=== PATIENT | male | born 1980 | race Caucasian/White ===

== ENCOUNTER 2020-01-26 21:37 | Observation (INO) | payer OTHER ==
[2020-01-27] MEDS ORDERED: METHYLPREDNISOLONE 125 MG INJ ONE
[2020-01-27] MEDS ORDERED: NA CHLORIDE 0.9% 1,000 ML ONE (00:01)
[2020-01-27] MEDS ORDERED: IPRATROPIUM BROM 0.5MG/2.5ML ONE (00:01)
[2020-01-27] MEDS ORDERED: CEFTRIAXONE/SWI 1gm 1 GM/10 ML SYR ONE (00:01)
[2020-01-27] MEDS ORDERED: AZITHROMYCIN 250 MG TAB ONE (00:01)
[2020-01-27 00:36] LABS: Absolute Lymphocytes (CBC) 2.3 K/uL (0.7-4.9); Basophils % 0.2 % (0-1.3); Hematocrit 42.8 % (39.6-49.0); Lymphocytes % 33.2 % (15.3-44.8); MPV 10.3 fL (7.6-11.3); RBC Red Blood Cell Count 5.03 M/uL (4.33-5.43)
[2020-01-27 00:48] LABS: Albumin 3.6 g/dL (3.4-5.0); Bilirubin Total 0.6 mg/dL (0.2-1.0); Potassium 3.6 mmol/L (3.5-5.1); Protein, Total 8.4 g/dL (6.4-8.2)
[2020-01-27 01:50] LABS: Blood Morphology Comment NOT SEEN (NOT SEEN); Platelet Estimate ADEQ
--- NOTE | 2020-01-27 01:50 | ER ---
Nurse's Notes [facility] Name: Tanvir Degroot Age: 39 yrs Sex: Male : 1980 Arrival Date: 01/26/2020 Time: 21:38 Bed 13 Private MD: Diagnosis: Pneumonia due to other specified infectious organisms;Hypoxemia Presentation: 01/25 21:46 Chief complaint: Patient states: Was diagnosed with Acute Bronchitis on Sunday, tested ca1 negative for Covid. Took antibiotics, inhalers, not relief, just getting worse. SOB at rest and laying down. Reports productive cough, chills. Denies fever. Coronavirus screen: Client denies travel out of the [place] in the last 14 days. chills, congestion, fatigue, shortness of breath, Client presents with at least one sign or symptom that may indicate coronavirus-19. Standard/surgical mask placed on the client. Provider contacted for isolation considerations. The client reports previous COVID testing was negative. Date of collection: January 22, 2020. Ebola Screen: Patient negative for fever greater than or equal to 101.5 degrees Fahrenheit, and additional compatible Ebola Virus Disease symptoms Patient denies exposure to infectious person. Patient denies travel to an Ebola-affected area in the 21 days before illness onset. No symptoms or risks identified at this time. Initial Sepsis Screen: Does the patient meet any 2 criteria? No. Patient's initial sepsis screen is negative. Does the patient have a suspected source of infection? No. Patient's initial sepsis screen is negative. Risk Assessment: Do you want to hurt yourself or someone else? Patient reports no desire to harm self or others. Onset of symptoms was January 26, 2020. 21:46 Method Of Arrival: Ambulatory ca1 21:46 Acuity: NAHED 3 ca1 Triage Assessment: 23:34 General: Appears in no apparent distress. Respiratory: Onset: The symptoms/episode ll2 began/occurred last two weeks, Respiratory: Airway is patent Respiratory effort is even, with nasal flaring, shallow. Historical: - Allergies: 21:50 No Known Allergies; ca1 - Home Meds: 21:50 None [Active]; ca1 - PSHx: 21:50 None; ca1 - Immunization history:: Adult Immunizations up to date, Flu vaccine is not up to date. - Social history:: Smoking status: Patient denies any tobacco usage or history of. Screenin:34 Abuse screen: Denies threats or abuse. Nutritional screening: No deficits noted. ll2 Tuberculosis screening: No symptoms or risk factors identified. Fall Risk None identified. Assessment: 23:32 General: Appears in no apparent distress. Behavior is calm, cooperative, appropriate ll2 for age. Pain: Denies pain. Neuro: Level of Consciousness is awake, alert, obeys commands, Oriented to person, place, time, situation. Cardiovascular: Rhythm is. Respiratory: Airway is patent Respiratory effort is even, with nasal flaring, shallow. GI: Reports diarrhea, nausea, since last week. : No signs and/or symptoms were reported regarding the genitourinary system. EENT: No signs and/or symptoms were reported regarding the EENT system. Derm: Skin is intact, is healthy with good turgor, Skin is dry, Skin is pink, warm \T\ dry. Skin temperature is warm. Musculoskeletal: Circulation, motion, and sensation intact. Range of motion: intact in all extremities. 23:35 Reassessment: pt's O2 sats were decreased to 90%, ERD notified, pt placed on 2L NC. ll2 01/26 00:25 Reassessment: Patient and/or family updated on plan of care and expected duration. Pain ll2 level reassessed. Patient is alert, oriented x 3, equal unlabored respirations, skin warm/dry/pink. pt resting in bed, at bedside. 01:22 Reassessment: Patient and/or family updated on plan of care and expected duration. Pain ll2 level reassessed. Patient is alert, oriented x 3, equal unlabored respirations, skin warm/dry/pink. 02:20 Reassessment: Patient and/or family updated on plan of care and expected duration. Pain ll2 level reassessed. Patient is alert, oriented x 3, equal unlabored respirations, skin warm/dry/pink. ERP advised pt on need for admit. 03:30 Reassessment: Patient and/or family updated on plan of care and expected duration. Pain ll2 level reassessed. Patient is alert, oriented x 3, equal unlabored respirations, skin warm/dry/pink. pt resting in bed comfortably, call light within reach. 04:42 Reassessment: Patient and/or family updated on plan of care and expected duration. Pain ll2 level reassessed. Patient is alert, oriented x 3, equal unlabored respirations, skin warm/dry/pink. report given to LAUREN michelle. 05:28 Reassessment: Patient and/or family updated on plan of care and expected duration. Pain ll2 level reassessed. Patient is alert, oriented x 3, equal unlabored respirations, skin warm/dry/pink. pt taken upstairs handed off care to LAUREN michelle. 05:34 Respiratory: Breath sounds are coarse bilaterally. ll2 Vital Signs: 01/25 21:46 BP 125 / 84; Pulse 105; Resp 18 S; Temp 98.7(TE); Pulse Ox 93% on R/A; Weight 104.33 kg ca1 (R); Height 5 ft. 8 in. (172.72 cm) (R); 23:25 BP 120 / 80; Pulse 85; Resp 18; Temp 98.7; Pulse Ox 90% on R/A; ll2 23:36 BP 110 / 84; Pulse 90; Resp 18; Pulse Ox 95% on 2 lpm NC; ll2 01/26 00:35 BP 106 / 77; Pulse 83; Resp 18; Pulse Ox 95% on 2 lpm NC; ll2 01:32 BP 117 / 71; Pulse 90; Resp 18; Pulse Ox 96% on 15% Nebulizer Mask; ll2 02:30 BP 116 / 75; Pulse 82; Resp 18; Temp 98.7; Pulse Ox 95% on 2 lpm NC; ll2 03:30 BP 107 / 73; Pulse 73; Resp 18; Pulse Ox 94% on 2 lpm NC; ll2 04:45 BP 117 / 81; Pulse 73; Resp 18; Temp 98.6; Pulse Ox 94% on 2 lpm NC; ll2 01/25 21:46 Body Mass Index 34.97 (104.33 kg, 172.72 cm) ca1 ED Course: 01/25 21:38 Patient arrived in ED. am2 21:49 Triage completed. ca1 21:50 Arm band placed on right wrist. ca1 23:10 Varsha Polo MD is Attending Physician. ma2 23:15 Maryann Jaffe, LAUREN is Primary Nurse. ll2 23:34 Patient has correct armband on for positive identification. Bed in low position. Call ll2 light in reach. Side rails up X 1. Pulse ox on. NIBP on. 23:43 CXR XRAY In Process Unspecified. EDIL 01/26 00:15 [facility]rep [facility]. [facility] 00:15 Flu Sent. 4 00:15 Inserted saline lock: 20 gauge in left hand, using aseptic technique. Blood collected. [facility] 01:49 Marco Antonio Borrego DO is Hospitalizing Provider. [facility] 05:34 No provider procedures requiring assistance completed. Patient admitted, IV remains in ll2 place. Administered Medications: 00:31 Drug: AZITHromycin 500 mg Route: PO; ll2 01:20 Follow up: Response: No adverse reaction ll2 00:31 Drug: NS 0.9% 1000 ml Route: IV; Rate: 1 bolus; Site: left antecubital; ll2 01:30 Follow up: Response: No adverse reaction; IV Status: Completed infusion; IV Intake: ll2 1000ml 00:32 Drug: Rocephin 1 grams Route: IV; Rate: calculated rate; Site: left antecubital; 2 00:33 Follow up: Response: No adverse reaction; IV Intake: 10ml ll2 01:20 Follow up: Response: No adverse reaction ll2 00:32 Drug: AtroVENT Aerosol 0.5 mg Route: Inhalation; ll2 01:30 Follow up: Response: No adverse reaction ll2 00:32 Drug: SOLU-Medrol 125 mg Route: IVP; Site: left antecubital; ll2 01:21 Follow up: Response: No adverse reaction ll2 Intake: 00:33 IV: 10ml; Total: 10ml. ll2 01:30 IV: 1000ml; Total: 1010ml. 2 Outcome: 01:50 Decision to Hospitalize by Provider. ma2 05:31 Admitted to Med/surg accompanied by nurse, via wheelchair, with oxygen, Report called ll2 to LAUREN Michelle 05:31 Condition: stable 05:31 Instructed on the need for admit. 05:35 Patient left the ED. 2 Signatures: Dispatcher [employer] EDIL Olivia Mills Varsha Taveras MD MD fl2 Jyothi Duran RN RN ca1 Huhn, Donald 4 Maryann Jaffe RN RN 2 Corrections: (The following items were deleted from the chart) 02:14 00:15 CORONAVIRUS+MR.NICHOLAS.BRZ drawn and sent. dh4 EDIL
--- NOTE | 2020-01-27 01:50 | EDPHYS ---
Physician Documentation [facility] Name: Tanvir Degroot Age: 39 yrs Sex: Male : 1980 Arrival Date: 01/26/2020 Time: 21:38 Bed 13 Private MD: ED Physician Varsha Polo HPI: 01/26 01:47 This 39 yrs old Male presents to ER via Ambulatory with complaints of ma2 Shortness Of Breath, Cough, General Weakness. 01:47 Onset: The symptoms/episode began/occurred gradually, 9 day(s) ago. Associated signs ma2 and symptoms: Pertinent positives: productive cough, Pertinent negatives: chest pain, diaphoresis, fever, nausea, numbness in extremities. Severity of symptoms: At their worst the symptoms were moderate in the emergency department the symptoms are unchanged. The patient has experienced a previous episode. has been having cough and sob x 3 weeks, had a negative covid test 3 wks ago, he completed z-pack and his symptoms worsens, his spo2 is 90 on ra . Historical: - Allergies: 01/25 21:50 No Known Allergies; ca1 - Home Meds: 21:50 None [Active]; ca1 - PSHx: 21:50 None; ca1 - Immunization history:: Adult Immunizations up to date, Flu vaccine is not up to date. - Social history:: Smoking status: Patient denies any tobacco usage or history of. ROS: 01/26 01:47 Constitutional: Negative for fever, chills, and weight loss. ma2 All other systems are negative. Exam: 01:47 Constitutional: This is a well developed, well nourished patient who is awake, alert, ma2 and in no acute distress. Head/Face: Normocephalic, atraumatic. Eyes: Pupils equal round and reactive to light, extra-ocular motions intact. Lids and lashes normal. Conjunctiva and sclera are non-icteric and not injected. Cornea within normal limits. Periorbital areas with no swelling, redness, or edema. ENT: Nares patent. No nasal discharge, no septal abnormalities noted. Tympanic membranes are normal and external auditory canals are clear. Oropharynx with no redness, swelling, or masses, exudates, or evidence of obstruction, uvula midline. Mucous membranes moist. Neck: Trachea midline, no thyromegaly or masses palpated, and no cervical lymphadenopathy. Supple, full range of motion without nuchal rigidity, or vertebral point tenderness. No Meningismus. Chest/axilla: Normal chest wall appearance and motion. Nontender with no deformity. No lesions are appreciated. Cardiovascular: Regular rate and rhythm with a normal S1 and S2. No gallops, murmurs, or rubs. Normal PMI, no JVD. No pulse deficits. Abdomen/GI: Soft, non-tender, with normal bowel sounds. No distension or tympany. No guarding or rebound. No evidence of tenderness throughout. Back: No spinal tenderness. No costovertebral tenderness. Full range of motion. MS/ Extremity: Pulses equal, no cyanosis. Neurovascular intact. Full, normal range of motion. Neuro: Awake and alert, GCS 15, oriented to person, place, time, and situation. Cranial nerves II-XII grossly intact. Motor strength 5/5 in all extremities. Sensory grossly intact. Cerebellar exam normal. Normal gait. Psych: Awake, alert, with orientation to person, place and time. Behavior, mood, and affect are within normal limits. 01:47 Respiratory: moderate respiratory distress is noted, Respirations: labored breathing, Breath sounds: bronchial sounds, that are moderate, Respiratory rate: 22 Vital Signs: 01/25 21:46 BP 125 / 84; Pulse 105; Resp 18 S; Temp 98.7(TE); Pulse Ox 93% on R/A; Weight 104.33 kg ca1 (R); Height 5 ft. 8 in. (172.72 cm) (R); 23:25 BP 120 / 80; Pulse 85; Resp 18; Temp 98.7; Pulse Ox 90% on R/A; ll2 23:36 BP 110 / 84; Pulse 90; Resp 18; Pulse Ox 95% on 2 lpm NC; ll2 01/26 00:35 BP 106 / 77; Pulse 83; Resp 18; Pulse Ox 95% on 2 lpm NC; ll2 01:32 BP 117 / 71; Pulse 90; Resp 18; Pulse Ox 96% on 15% Nebulizer Mask; ll2 02:30 BP 116 / 75; Pulse 82; Resp 18; Temp 98.7; Pulse Ox 95% on 2 lpm NC; ll2 03:30 BP 107 / 73; Pulse 73; Resp 18; Pulse Ox 94% on 2 lpm NC; ll2 04:45 BP 117 / 81; Pulse 73; Resp 18; Temp 98.6; Pulse Ox 94% on 2 lpm NC; ll2 01/25 21:46 Body Mass Index 34.97 (104.33 kg, 172.72 cm) ca1 MDM: 01/25 23:10 Patient medically screened. [facility] 01/26 01:47 Differential diagnosis: Anemia Anxiety Reaction asthma, Bronchitis Chronic Obstructive la2 Pulmonary Disease pneumonia, reactive airway disease. Antibiotic administration: Data reviewed: vital signs, nurses notes. Counseling: I had a detailed discussion with the patient and/or guardian regarding: the historical points, exam findings, and any diagnostic results supporting the discharge/admit diagnosis, the presence of at least one elevated blood pressure reading (>120/80) during this emergency department visit, the need for further work-up and treatment in the hospital. 01/25 23:30 Order name: Flu; Complete Time: 01:13 [facility] 01/25 23:30 Order name: Strep; Complete Time: 01:13 [facility] 01/25 23:30 Order name: CBC with Diff [facility] 01/25 23:30 Order name: CMP [facility] 01/26 01:51 Order name: Manual Differential; Complete Time: 02:32 [facility] 01/26 01:55 Order name: Blood Culture Adult (2) [facility] 01/26 01:55 Order name: Procalcitonin [facility] 01/26 02:11 Order name: Throat Culture [facility] 01/26 02:18 Order name: C-Reactive Protein [facility] 01/26 02:18 Order name: Ferritin [facility] 01/26 02:38 Order name: SARS-COV-2 RT PCR [facility] 01/25 23:30 Order name: CXR XRAY [facility] 01/25 23:30 Order name: Document PUI#; Complete Time: 00:16 [facility] 01/25 23:30 Order name: Droplet/Contact Precautions; Complete Time: 00:16 [facility] 01/25 23:30 Order name: Labs collected and sent; Complete Time: 00:15 [facility] 01/25 23:30 Order name: Notify Health Dept [phone]/ ; Complete Time: 00:16 [facility] 01/25 23:30 Order name: O2 Per Protocol; Complete Time: 00:15 ma2 Administered Medications: 00:31 Drug: AZITHromycin 500 mg Route: PO; ll2 01:20 Follow up: Response: No adverse reaction ll2 00:31 Drug: NS 0.9% 1000 ml Route: IV; Rate: 1 bolus; Site: left antecubital; ll2 01:30 Follow up: Response: No adverse reaction; IV Status: Completed infusion; IV Intake: ll2 1000ml 00:32 Drug: Rocephin 1 grams Route: IV; Rate: calculated rate; Site: left antecubital; ll2 00:33 Follow up: Response: No adverse reaction; IV Intake: 10ml ll2 01:20 Follow up: Response: No adverse reaction ll2 00:32 Drug: AtroVENT Aerosol 0.5 mg Route: Inhalation; ll2 01:30 Follow up: Response: No adverse reaction ll2 00:32 Drug: SOLU-Medrol 125 mg Route: IVP; Site: left antecubital; ll2 01:21 Follow up: Response: No adverse reaction ll2 Disposition: 01/27/20 01:50 Hospitalization ordered by Marco Antonio Borrego for Inpatient Admission. Preliminary diagnosis are Pneumonia due to other specified infectious organisms, Hypoxemia. - Bed requested for Telemetry/MedSurg (Inpatient). - Status is Inpatient Admission. ll2 - Condition is Stable. - Problem is new. - Symptoms are unchanged. Signatures: Dispatcher [employer] EDWI Vicki Roy RN RN mw Attema, Lee, NURSE ORTHOPEDIC-C NURSE ORTHOPEDIC-Cla1 Varsha Polo MD MD la2 Jyothi Duran RN RN [facility] Maryann Jaffe RN RN ll2 Corrections: (The following items were deleted from the chart) 02:14 01/25 23:31 CORONAVIRUS+MR.LAB.BRZ ordered. EDWI EDMS 01/26 02:17 02:07 C-REACTIVE PROTEIN+C.LAB.BRZ ordered. EDWI EDMS 02:18 02:07 FERRITIN+C.LAB.BRZ ordered. EDWI EDMS 04:00 01:50 Hospitalization Ordered by Marco Antonio Borrego DO for Inpatient Admission. Preliminary diagnosis is Pneumonia due to other specified infectious organisms; Hypoxemia. Bed requested for Telemetry/MedSurg (Inpatient). Status is Inpatient Admission. Condition is Stable. Problem is new. Symptoms are unchanged. ma2 05:35 04:00 01/27/2020 01:50 Hospitalization Ordered by Marco Antonio Borrego DO for Inpatient ll2 Admission. Preliminary diagnosis is Pneumonia due to other specified infectious organisms; Hypoxemia. Bed requested for Telemetry/MedSurg (Inpatient). Status is Inpatient Admission. Condition is Stable. Problem is new. Symptoms are unchanged. mw
[2020-01-27 02:38] LABS: C-Reactive Protein 10.1 mg/L (<3.00); Ferritin 322.8 ng/mL (26-388)
--- NOTE | 2020-01-27 02:49 | P.HP ---
Certification for Inpatient Patient admitted to: Observation With expected LOS: <2 Midnights Patient will require the following post-hospital care: None Practitioner: I am a practitioner with admitting privileges, knowledge of patient current condition, hospital course, and medical plan of care. Services: Services provided to patient in accordance with Admission requirements found in Title 42 Section 412.3 of the Code of Federal Regulations <Jesus Mccabe - Last Filed: 01/27/20 02:46> Patient admitted to: Observation <Marco Antonio Borrego - Last Filed: 01/27/20 13:55> Patient History Date of Service: 01/27/20 Primary Care Provider: [place] Reason for admission: Dyspnea, COVID History of Present Illness: Otherwise healthy 39-year-old male presents the emergency department for shortness of breath. Patient reports productive cough over the course of the last 3 weeks with shortness of breath increasing over the course of the last 1 week. Patient was seen at urgent care on 01/22/2020 and prescribed Z-Tristen, Medrol Dosepak, Tessalon Perle, albuterol inhaler but symptoms have worsened since then. Patient also reports other symptoms suggesting viral illness such as muscle aches, nausea, diarrhea, vomiting. 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 Patient was mildly hypoxic and tachypneic in the emergency department with saturations around 90% and respiratory rate in the high 20s. Patient tested positive for COVID. Will admit for further evaluation and management. CRP level pending. Patient is a [facility] patient, the [facility] notification hot line was called and made aware of his emergency department visit and pending hospitalization. 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 - Family History Family History: Reviewed- Non-Contributory - Social History Smoking Status: Never smoker Alcohol use: Yes CD- Drugs: No Caffeine use: Yes Place of Residence: Home <Jesus Mccabe - Last Filed: 01/27/20 02:46> Date of Service: 01/27/20 <Marco Antonio Borrego - Last Filed: 01/27/20 13:55> Review of Systems General: Weakness, Malaise Respiratory: Cough, Shortness of Breath, Pleuritic Pain Gastrointestinal: Nausea, Vomiting, Abdominal Pain <Jesus Mccabe - Last Filed: 01/27/20 02:46> Eyes: Unremarkable ENT: Unremarkable Genitourinary: Unremarkable Musculoskeletal: Unremarkable Integumentary: Unremarkable Neurological: Unremarkable Lymphatics: Unremarkable <Marco Antonio Borrego - Last Filed: 01/27/20 13:55> Physical Examination - Physical Exam General: Alert, In no apparent distress, Oriented x3 HEENT: Atraumatic, Normocephalic, PERRLA Neck: Supple Respiratory: Diminished (Bilaterally) Cardiovascular: Normal pulses, Regular rate/rhythm, Normal S1 S2 Capillary refill: <2 Seconds Gastrointestinal: Normal bowel sounds, Soft and benign, No tenderness, No masses, No rebound Musculoskeletal: No contractures, No erythema, No tenderness Integumentary: No significant lesion, No tenderness/swelling, No erythema Neurological: Normal speech, Normal strength at 5/5 x4 extr, Normal tone, Sensation intact - Studies Laboratory Data (last 24 hrs) 01/27/20 00:05: Sodium 136, Potassium 3.6, BUN 11, Creatinine 1.14, Glucose 102, Total Bilirubin 0.6, AST 59 H, ALT 64, Alkaline Phosphatase 87 01/27/20 00:05: WBC 7.0, Hgb 14.5, Hct 42.8, Plt Count 268 Microbiology Data (last 24 hrs): 01/27/20 00:10 Throat Group A Streptococcus Rapid Screen - Final 01/27/20 00:10 Nasopharnyx Influenza Type A Antigen Screen - Final 01/27/20 00:10 Nasopharnyx Influenza Type B Antigen Screen - Final <Jesus Mccabe - Last Filed: 01/27/20 02:46> - Studies Laboratory Data (last 24 hrs) 01/27/20 00:05: Sodium 136, Potassium 3.6, BUN 11, Creatinine 1.14, Glucose 102, Total Bilirubin 0.6, AST 59 H, ALT 64, Alkaline Phosphatase 87 01/27/20 00:05: WBC 7.0, Hgb 14.5, Hct 42.8, Plt Count 268 Microbiology Data (last 24 hrs): 01/27/20 00:10 Throat Group A Streptococcus Rapid Screen - Final 01/27/20 00:10 Nasopharnyx Influenza Type A Antigen Screen - Final 01/27/20 00:10 Nasopharnyx Influenza Type B Antigen Screen - Final <Marco Antonio Borrego - Last Filed: 01/27/20 13:55> Assessment and Plan - Plan Assessment Dyspnea and hypoxia secondary to COVID pneumonia Plan Dyspnea and hypoxia secondary to COVID pneumonia: Continue with IV steroids, supplementation. Pulmonology consult in place. Oxygen supplementation as necessary. Daily room air saturations, room air saturations for home oxygen. Possible discharge with home oxygen if patient is feeling well tomorrow. DVT prophylaxis Lovenox 40 mg subcutaneous once daily. Discharge Plan: Home Plan to discharge in: 24 Hours - Advance Directives Does patient have a Living Will: No Does patient have a Durable POA for Healthcare: No - Code Status/Comfort Care Code Status Assessed: Yes (Full code) Critical Care: No Time Spent Managing Pts Care (In Minutes): 55 <Jesus Mccabe - Last Filed: 01/27/20 02:46> - Plan Case discussed with nurse practitioner. Agree with plan of care. Please see discharge summary for details. <Marco Antonio Borrego - Last Filed: 01/27/20 13:55>
[2020-01-27] MEDS ORDERED: ONDANSETRON 4 MG/2 ML VIAL IV PRN (04:48)
[2020-01-27] MEDS ORDERED: ACETAMINOPHEN 500 MG TAB PO PRN (04:48)
[2020-01-27] MEDS ORDERED: BENZONATATE 100 MG CAP PO PRN (04:48)
[2020-01-27 05:35] VITALS: BMI 33.2
[2020-01-27 06:25] VITALS: O2SAT 96
[2020-01-27] MEDS: ASCORBIC ACID 500 MG TABLET PO SCH ×2 (07:55→13:29)
[2020-01-27] MEDS ORDERED: INFLUENZA VACCINE (for 3y+) 0.5 ML DOSE IMVAC ONE (08:00)
--- NOTE | 2020-01-27 08:02 | RAD REPORT ---
EXAM DESCRIPTION: [facility] Single View01/26/2020 11:43 pm CLINICAL HISTORY: Congestion COMPARISON: none FINDINGS: The lungs appear clear of acute infiltrate. The heart is normal size IMPRESSION: No acute abnormalities displayed
[2020-01-27 08:51] VITALS: TEMP 97.2
[2020-01-27] MEDS ORDERED: CEFTRIAXONE/SWI 1gm 1 GM/10 ML SYR IV SCH ×2 (09:00→10:00)
[2020-01-27] MEDS ORDERED: ENOXAPARIN 40 MG/0.4 ML SQ SCH (09:00)
[2020-01-27] MEDS ORDERED: METHYLPREDNISOLONE 40 MG INJ IV SCH (09:00)
[2020-01-27] MEDS ORDERED: VITAMIN D 1000 UNIT TAB PO SCH (09:00)
[2020-01-27] MEDS ORDERED: AZITHROMYCIN IV 500 MG in NA CHLORIDE 0.9% 250 ML IVPB SCH (09:00)
[2020-01-27] MEDS ORDERED: ZINC SULFATE 220 MG CAP PO SCH (09:00)
[2020-01-27] MEDS ORDERED: CEFTRIAXONE 1 GM/NS 50 ML 1 GM/50 ML BAG IV SCH (09:00)
--- NOTE | 2020-01-27 12:57 | P.CNS ---
Date of Consult: 01/27/20 Primary Care Provider: CHETNA Chief Complaint: Dyspnea, COVID History of Present Illness: Patient is 39 years of age presented to the emergency room with shortness of breath been short of breath over the past 3 weeks could became progressively worse in to urgent care and was treated with steroids in inhalers also developed systemic symptoms diarrhea nausea vomiting patient tested positive for zamora virus he is doing well right not chest x-ray nose significant interstitial changes Allergies No Known Allergies Allergy (Unverified 01/27/20 04:48) Home Medications: NK [No Home Meds] 01/27/20 - Past Medical/Surgical History Diabetic: No -: None -: None Psychosocial/ Personal History: 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 - Social History Alcohol use: No CD- Drugs: No Caffeine use: Yes Place of Residence: Home Review of Systems General: Weakness, Malaise Respiratory: Shortness of Breath Physical Examination Temp Pulse Resp BP Pulse Ox 97.2 F 75 18 115/68 93 01/27/20 12:00 01/27/20 12:00 01/27/20 12:00 01/27/20 12:00 01/27/20 12:00 General: Alert, In no apparent distress, Oriented x3 Respiratory: Clear to auscultation bilaterally Cardiovascular: Regular rate/rhythm Laboratory Data (last 24 hrs) 01/27/20 00:05: Sodium 136, Potassium 3.6, BUN 11, Creatinine 1.14, Glucose 102, Total Bilirubin 0.6, AST 59 H, ALT 64, Alkaline Phosphatase 87 01/27/20 00:05: WBC 7.0, Hgb 14.5, Hct 42.8, Plt Count 268 - Problems (1) Coronavirus infection Current Visit: Yes Status: Acute Plan: Patient is 39 years of age admitted with zamora virus infection is doing well is CRP is minimally elevated oxygen saturation is satisfactory patient can be discharged home on low-dose prednisone 10 mg twice a day for about 10 days no anticoagulation necessary can take over the counter aspirin
--- NOTE | 2020-01-27 13:43 | P.DS ---
Admission Date: 01/27/20 Discharge Date: 01/27/20 Primary Care Provider: CHETNA Disposition: ROUTINE DISCHARGE Discharge Condition: GOOD Reason for Admission: Dyspnea, COVID Consultations: Pulmonary-Dr. Becerra Procedures: CXR: COMPARISON: none FINDINGS: The lungs appear clear of acute infiltrate. The heart is normal size IMPRESSION: No acute abnormalities displayed Medical problem List: Dyspnea secondary to bilateral COVID19 pneumonia with hypoxia Brief History of Present Illness: 39-year-old male presents the emergency department for shortness of breath. Patient reports productive cough over the course of the last 3 weeks with shortness of breath increasing over the course of the last 1 week. Patient was seen at urgent care on 01/22/2020 and prescribed Z-Tristen, Medrol Dosepak, Tessalon Perle, albuterol inhaler but symptoms have worsened since then. Patient also reports other symptoms suggesting viral illness such as muscle aches, nausea, diarrhea, vomiting. 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 Patient was mildly hypoxic and tachypneic in the emergency department with saturations around 90% and respiratory rate in the high 20s. Patient tested positive for COVID. Clay nt admitted for further evaluation and treatment. Hospital Course: Patient presented with bilateral COVID 19 pneumonia with hypoxia. He was given IV steroids with improvement. Inflammatory markers showed mild inflammation. Patient seen by Pulmonary. At discharge he did not require home oxygen. Pulmonary recommended no further hospitalization. At discharge, patient will continue with Prednisone 10 mg one pill twice daily for 7 days then one pill once daily for 7 days. He will continue with Zinc 220 mg one pill daily, Vitamin C 500 mg one pill three times a day, and Vitamin D 2000 units once daily. He will also be given Tessalon 100 mg one pill twice daily as needed for cough. She will follow up with pulmonology in 1 week to follow up this hospitalization. Vital Signs/Physical Exam: Temp Pulse Resp BP Pulse Ox 97.2 F 75 18 115/68 93 01/27/20 12:00 01/27/20 12:00 01/27/20 12:00 01/27/20 12:00 01/27/20 12:00 General: Alert, In no apparent distress, Oriented x3, Cooperative HEENT: Atraumatic Neck: Supple Respiratory: Other (Patient doing well this time. No respiratory distress.) Cardiovascular: Regular rate/rhythm Gastrointestinal: No ascites Neurological: Normal speech, Normal strength at 5/5 x4 extr, Normal tone, Normal affect Laboratory Data at Discharge: WBC 7.0 K/uL (4.3-10.9) 01/27/20 00:05 Hgb 14.5 g/dL (13.6-17.9) 01/27/20 00:05 Hct 42.8 % (39.6-49.0) 01/27/20 00:05 Plt Count 268 K/uL (152-406) 01/27/20 00:05 Sodium 136 mmol/L (136-145) 01/27/20 00:05 Potassium Cancelled 01/27/20 13:00 BUN 11 mg/dL (7-18) 01/27/20 00:05 Creatinine 1.14 mg/dL (0.55-1.3) 01/27/20 00:05 Glucose 102 mg/dL (74-106) 01/27/20 00:05 Magnesium Cancelled 01/27/20 13:00 Total Bilirubin 0.6 mg/dL (0.2-1.0) 01/27/20 00:05 AST 59 U/L (15-37) H 01/27/20 00:05 ALT 64 U/L (12-78) 01/27/20 00:05 Alkaline Phosphatase 87 U/L (45-117) 01/27/20 00:05 Home Medications: Ascorbic Acid [Vitamin C*] 500 mg PO TID #90 tablet 01/27/20 Benzonatate [Tessalon Perle*] 100 mg PO TID PRN #15 cap 01/27/20 Cholecalciferol (Vitamin D3) [Vitamin D 1000 Iu Tab*] 2,000 unit PO DAILY #60 tab 01/27/20 Zinc Sulfate [Zinc Sulfate*] 220 mg PO DAILY #90 cap 01/27/20 predniSONE [Deltasone*] 10 mg PO SEECOM #21 tab 01/27/20 New Medications: predniSONE [Deltasone*] 10 mg PO SEECOM #21 tab Benzonatate [Tessalon Perle*] 100 mg PO TID PRN #15 cap PRN Reason: Cough Ascorbic Acid [Vitamin C*] 500 mg PO TID #90 tablet Cholecalciferol (Vitamin D3) [Vitamin D 1000 Iu Tab*] 2,000 unit PO DAILY #60 tab Zinc Sulfate [Zinc Sulfate*] 220 mg PO DAILY #90 cap Patient Discharge Instructions: Recommend follow up with PCP in one week to follow up this hospitalization. Patient presented with bilateral COVID 19 pneumonia with hypoxia. He was given IV steroids with improvement. Inflammatory markers showed mild inflammation. Patient seen by Pulmonary. At discharge he did not require home oxygen. Pulmonary recommended no further hospitalization. At discharge, patient will continue with Prednisone 10 mg one pill twice daily for 7 days then one pill once daily for 7 days. He will continue with Zinc 220 mg one pill daily, Vitamin C 500 mg one pill three times a day, and Vitamin D 2000 units once daily. He will also be given Tessalon 100 mg one pill twice daily as needed for cough. Recommend follow up with Pulmonary in one week to follow up this hospitalization. Diet: AHA Activity: Ad froy Followup: NONE,NONE [Primary Care Provider] - Time spent managing pt's care (in minutes): 55
[2020-01-27 16:48] VITALS: BP 118/67
== END 2020-01-27 17:27 | disposition home or self-care (01) ==
LOC: ER 21:37 → ERHOLD 01-27 02:19 → 4TH 01-27 04:43
PROVIDERS: ADMIT Family Medicine; ATTEND Family Medicine
DX: U07.1 COVID-19 (principal); J12.89 Other viral pneumonia; R09.02 Hypoxemia
CPT/HCPCS: 96361; 87040 ×2; 87070; 85025; 36415; 87081; 82728; 80053; 84145; 86140; 87804 ×2; 71045; 96375; 96374; 99285; U0003; J1650; J0696; J2920 ×2; J0456; J7050

== ENCOUNTER 2020-07-29 08:14 | Emergency (ER) | payer OTHER ==
[2020-07-29] MEDS ORDERED: NA CHLORIDE 0.9% 1,000 ML ONE (09:03)
[2020-07-29 09:12] LABS: Urine Blood 2+ (Negative); Urine Glucose Negative (Negative); Urine Protein Negative (Negative); Urine Specific Gravity >=1.030 (1.005-1.030)
[2020-07-29 09:13] LABS: Absolute Lymphocytes (CBC) 3.5 K/uL (0.7-4.9); Basophils % 0.4 % (0-1.3); Hematocrit 43.6 % (39.6-49.0); Lymphocytes % 39.1 % (15.3-44.8); MPV 9.9 fL (7.6-11.3); RBC Red Blood Cell Count 5.09 M/uL (4.33-5.43)
--- NOTE | 2020-07-29 09:22 | RAD REPORT ---
EXAM DESCRIPTION: CT - Abdomen Pelvis Wo Contrast - 07/29/2020 9:13 am CLINICAL HISTORY: Abdominal pain. abd pain COMPARISON: No comparisons TECHNIQUE: CT imaging of the abdomen and pelvis was performed without contrast. Solid organ, bowel a nd vascular assessment is limited due to lack of IV and oral contrast. All CT scans are performed using dose optimization technique as appropriate and may include automated exposure control or mA/KV adjustment according to patient size. FINDINGS: The lower lung daniel are clear.Numerous gallstones are present in the gallbladder. The liver, spleen, pancreas, adrenal glands and right kidney are within normal limits for a limited n on-contrast examination. 4 mm stone is noted at the left UVJ resulting in mild left hydronephrosis. No bowel obstruction, free air, free fluid or abscess. Small bilateral fat containing inguinal hernia . The appendix is normal. The osseous structures are within normal limits. IMPRESSION: 4 mm calculus is present at the left UVJ resulting in mild left hydronephrosis. Cholelithiasis. A limited non-contrast examination was performed as detailed.
[2020-07-29 09:30] LABS: Albumin 3.7 g/dL (3.4-5.0); Bilirubin Total 0.8 mg/dL (0.2-1.0); Potassium 3.4 mmol/L (3.5-5.1); Protein, Total 7.7 g/dL (6.4-8.2)
--- NOTE | 2020-07-29 10:37 | EDPHYS ---
Physician Documentation [facility] Name: Tanvir Degroot Age: 39 yrs Sex: Male : 1980 Arrival Date: 07/29/2020 Time: 09:14 Bed 19 Private MD: ED Physician Varsha Polo HPI: 07/29 10:35 This 39 yrs old Male presents to ER via Unassigned with complaints of Flank ma2 Pain. 10:35 The pain does not radiate. Onset: The symptoms/episode began/occurred gradually, 1 ma2 day(s) ago. Associated signs and symptoms: Pertinent negatives: fever, headache, hematuria. Severity of pain: At its worst the pain was mild in the emergency department the pain is unchanged. The patient has not experienced similar symptoms in the past. Historical: - Allergies: 11:01 No Known Allergies; kg - PMHx: 11: None; kg - PSHx: 11:01 None; kg - Immunization history:: Adult Immunizations up to date. - Social history:: Patient/guardian denies using alcohol, street drugs, The patient lives with family, Smoking status: Patient denies any tobacco usage or history of. - Family history:: not pertinent. ROS: 10:35 Constitutional: Negative for fever, chills, and weight loss. ma2 10:35 All other systems are negative. Exam: 10:35 Constitutional: This is a well developed, well nourished patient who is awake, alert, ma2 and in no acute distress. Neck: Trachea midline, no thyromegaly or masses palpated, and no cervical lymphadenopathy. Supple, full range of motion without nuchal rigidity, or vertebral point tenderness. No Meningismus. Chest/axilla: Normal chest wall appearance and motion. Nontender with no deformity. No lesions are appreciated. Cardiovascular: Regular rate and rhythm with a normal S1 and S2. No gallops, murmurs, or rubs. Normal PMI, no JVD. No pulse deficits. Respiratory: Lungs have equal breath sounds bilaterally, clear to auscultation and percussion. No rales, rhonchi or wheezes noted. No increased work of breathing, no retractions or nasal flaring. Abdomen/GI: Soft, non-tender, with normal bowel sounds. No distension or tympany. No guarding or rebound. No evidence of tenderness throughout. Skin: Warm, dry with normal turgor. Normal color with no rashes, no lesions, and no evidence of cellulitis. MS/ Extremity: Pulses equal, no cyanosis. Neurovascular intact. Full, normal range of motion. Neuro: Awake and alert, GCS 15, oriented to person, place, time, and situation. Cranial nerves II-XII grossly intact. Motor strength 5/5 in all extremities. Sensory grossly intact. Cerebellar exam normal. Normal gait. Vital Signs: 10:45 BP 115 / 87; Pulse 75; Resp 20; Pulse Ox 97% ; kg MDM: 10:35 Differential diagnosis: nephrolithiasis, pyelonephritis, UTI, pancreatitis. Data ma2 reviewed: vital signs, nurses notes. Counseling: I had a detailed discussion with the patient and/or guardian regarding: the historical points, exam findings, and any diagnostic results supporting the discharge/admit diagnosis, the presence of at least one elevated blood pressure reading (>120/80) during this emergency department visit, the need for outpatient follow up. Response to treatment: the patient's symptoms have markedly improved after treatment. 10:36 Patient medically screened. ma2 07/29 09:14 Order name: Urine Dipstick-Ancillary; Complete Time: 09:55 EDMS 07/29 09:16 Order name: CBC with Automated Diff; Complete Time: 09:55 EDMS 07/29 09:22 Order name: CT; Complete Time: 09:55 EDMS 07/29 09:30 Order name: Comprehensive Metabolic Panel; Complete Time: 09:55 EDMS 07/29 09:30 Order name: Lipase; Complete Time: 09:55 EDMS Administered Medications: No medications were administered Disposition: 07/29/20 10:36 Discharged to Home. Impression: Calculus of kidney and ureter - LEFT. - Condition is Stable. - Discharge Instructions: Dietary Guidelines to Help Prevent Kidney Stones. - Prescriptions for Zofran 4 mg Oral Tablet - take 1 tablet by ORAL route every 12 hours As needed; 20 tablet. Flomax 0.4 mg Oral Capsule, Sust. Release 24 hr - take 1 capsule by ORAL route once daily 1/2 hour following the same meal each day; 30 capsule. Diclofenac Sodium 75 mg Oral Tablet Sustained Release - take 1 tablet by ORAL route 2 times per day; 30 tablet. - Medication Reconciliation Form, Thank You Letter, Antibiotic Education, Prescription Opioid Use, Work release form form. - Follow up: Andrea Jeronimo MD; When: Tomorrow; Reason: If symptoms return, Continuance of care. Signatures: Varsha Polo MD MD ma2 Heidi Suazo, RN RN kg Corrections: (The following items were deleted from the chart) 11:02 10:36 07/29/2020 10:36 Discharged to Home. Impression: Calculus of kidney and ureter - kg LEFT. Condition is Stable. Forms are Medication Reconciliation Form, Thank You Letter, Antibiotic Education, Prescription Opioid Use. Follow up: Andrea Jeronimo; When: Tomorrow; Reason: If symptoms return, Continuance of care. ma2
--- NOTE | 2020-07-29 10:37 | ER ---
Nurse's Notes [facility] Name: Tanvir Degroot Age: 39 yrs Sex: Male : 1980 Arrival Date: 07/29/2020 Time: 09:14 Bed 19 Private MD: Diagnosis: Calculus of kidney and ureter-LEFT Presentation: 07/29 10:59 Chief complaint: Patient states: Right flank pain. Coronavirus screen: Client denies kg travel out of the [place] in the last 14 days. At this time, unable to obtain information related to travel outside the [place] At this time, the client does not indicate any symptoms associated with coronavirus-19. Ebola Screen: Patient negative for fever greater than or equal to 101.5 degrees Fahrenheit, and additional compatible Ebola Virus Disease symptoms Patient denies exposure to infectious person. Patient denies travel to an Ebola-affected area in the 21 days before illness onset. Initial Sepsis Screen: Does the patient meet any 2 criteria? No. Patient's initial sepsis screen is negative. Does the patient have a suspected source of infection? No. Patient's initial sepsis screen is negative. Risk Assessment: Do you want to hurt yourself or someone else? Patient reports no desire to harm self or others. Onset of symptoms was July 29, 2020. 10:59 Acuity: NAHED 3 kg 10:59 Method Of Arrival: EMS: [facility] kg Triage Assessment: 11:01 General: Appears in no apparent distress. Pain: Complains of pain in back. kg 11:01 General: Behavior is calm, cooperative, appropriate for age, quiet. kg Historical: - Allergies: 11:01 No Known Allergies; kg - PMHx: 11: None; kg - PSHx: 11:01 None; kg - Immunization history:: Adult Immunizations up to date. - Social history:: Patient/guardian denies using alcohol, street drugs, The patient lives with family, Smoking status: Patient denies any tobacco usage or history of. - Family history:: not pertinent. Screenin:59 Abuse screen: Denies threats or abuse. Denies injuries from another. Nutritional kg screening: No deficits noted. Tuberculosis screening: No symptoms or risk factors identified. Fall Risk None identified. Assessment: 10:31 Reassessment: Patient states feeling better. Patient states symptoms have improved. kg Vital Signs: 10:45 BP 115 / 87; Pulse 75; Resp 20; Pulse Ox 97% ; kg ED Course: 09:14 Patient arrived in ED. ss 09:21 Varsha Polo MD is Attending Physician. eb 09:36 Heidi Suazo, RN is Primary Nurse. kg 10:36 Andrea Jeronimo MD is Referral Physician. ma2 10:59 IV discontinued, intact, bleeding controlled, No redness/swelling at site. Pressure kg dressing applied. 10:59 Patient has correct armband on for positive identification. Placed in gown. Bed in low kg position. Call light in reach. Side rails up X2. Adult w/ patient. 11:00 Triage completed. kg 11:01 No provider procedures requiring assistance completed. kg Administered Medications: No medications were administered Outcome: 10:36 Discharge ordered by . ma2 11:01 Discharged to home ambulatory. kg 11:01 Condition: good 11:01 Discharge instructions given to patient, Instructed on discharge instructions, follow up and referral plans. Demonstrated understanding of instructions, follow-up care, medications, Prescriptions given X 3. 11:02 Patient left the ED. kg Signatures: Jessi Hathaway, RN RN Varsha Polo MD MD ar2 Aysha Norris Heidi Suazo, RN RN kg
[2020-07-29 11:07] VITALS: BP 115/87; O2SAT 97
== END 2020-07-29 11:02 | disposition home or self-care (01) ==
LOC: ER 08:14
DX: N20.2 Calculus of kidney with calculus of ureter (principal)
CPT/HCPCS: 85025; 36415; 81003; 83690; 80053; 74176; J7030

== ENCOUNTER 2023-09-16 18:35 | Emergency (ER) | payer OTHER ==
[2023-09-16] MEDS ORDERED: LIDOCAINE 2% W/EPI 1:200,000 MPF 20 ML VIAL IM ONE (19:15)
--- NOTE | 2023-09-16 19:46 | EDPHYS ---
Physician Documentation [facility] Name: Tanvir Degroot Age: 42 yrs Sex: Male : 1980 Arrival Date: 09/16/2023 Time: 18:35 Bed 10 Private MD: ED Physician Dionisio Pierre HPI: 09/15 23:05 This 42 yrs old Male presents to ER via Ambulatory with complaints of Elbow Laceration. ms3 23:05 42-year-old male with no past medical history presents to the emergency department ms3 after lacerating his left elbow at [employer] going down a slide at 1 PM. Patient states his discomfort is a 4/10. Patient denies foreign body and laceration.. Historical: - Allergies: 19:12 No Known Allergies; nj1 - PMHx: 19:12 None; nj1 - PSHx: 19:12 None; nj1 - Immunization history:: Client reports having NOT received the Covid vaccine. Last tetanus immunization: unknown. - Infectious Disease History:: Denies. - Social history:: Smoking status: Patient denies any tobacco usage or history of. ROS: 23:05 Constitutional: Negative for fever, and chills. Neck: Negative for injury, pain, and ms3 swelling, Cardiovascular: Negative for chest pain, and palpitations. Respiratory: Negative for shortness of breath, cough, wheezing, and pleuritic chest pain, Abdomen/GI: Negative for abdominal pain, nausea, vomiting, diarrhea, and constipation, 23:05 Skin: Positive for laceration(s), Exam: 23:05 Constitutional: This is a well developed, well nourished patient who is awake, alert, ms3 and in no acute distress. Head/Face: Normocephalic, atraumatic. Chest/axilla: Normal chest wall appearance and motion. Nontender with no deformity. Cardiovascular: Regular rate and rhythm with a normal S1 and S2. No gallops, murmurs, or rubs. Normal PMI, no JVD. No pulse deficits. Respiratory: Lungs have equal breath sounds bilaterally, clear to auscultation and percussion. No rales, rhonchi or wheezes noted. No increased work of breathing, no retractions or nasal flaring. Abdomen/GI: Soft, non-tender, with normal bowel sounds. No distension or tympany. No guarding or rebound. No evidence of tenderness throughout. 23:05 Musculoskeletal/extremity: Extremities: noted in the Left elbow: There is no evidence of decreased ROM, deformity, ecchymosis, swelling, 23:05 Skin: injury, laceration(s), the wound is approximately 2 cm(s), of the Left elbow, Vital Signs: 19:09 BP 140 / 91; Pulse 71; Resp 18; Temp 98(O); Pulse Ox 98% on R/A; Weight 93.44 kg; nj1 Height 5 ft. 9 in. ; Pain 4/10; 19:30 BP 119 / 77; Pulse 77; Resp 17; Temp 98; Pain 0/10; rg5 19:09 Body Mass Index 30.42 (93.44 kg, 175.26 cm) nj1 19:09 Pain Scale: Adult nj1 19:30 Pain Scale: Adult rg5 Laceration: 23:05 Wound Repair of 2cm ( 0.8in ) subcutaneous laceration to left elbow. Linear shaped.. ms3 Distal neuro/vascular/tendon intact. Anesthesia: Local anesthetic administered with 4 mls of 1% lidocaine w/ Epi. Wound prep: Simple cleansing by me. Skin closed with 2 4-0 Prolene using simple sutures and sterile technique. Patient tolerated well. MDM: 19:21 Patient medically screened. ms3 23:05 Differential diagnosis: contusion, Laceration. Data reviewed: vital signs, nurses ms3 notes, and as a result, I will discharge patient. I considered the following discharge prescriptions or medication management in the emergency department Medications were administered in the Emergency Department. See MAR. Test considered but Not performed: X-ray: Discussed obtaining left elbow x-ray with patient and patient declines. Discussed risks of missed radiopaque foreign body or fracture. Patient states [facility] Historians other than the Patient: Spouse/Significant Other: Patient's . Counseling: I had a detailed discussion with the patient and/or guardian regarding the historical points, exam findings, and any diagnostic results supporting the discharge/admit diagnosis, the need for outpatient follow up, to return to the emergency department if symptoms worsen or persist or if there are any questions or concerns that arise at home. ED course: Discussed exam findings and laceration care with patient and his . Patient to follow-up with his primary care physician in 7 to 10 days for suture removal. Patient understands and agrees with plan. All questions were answered. Return precautions discussed include worsening symptoms, or any other concerns. Administered Medications: 19:45 Drug: Boostrix Tdap IM 0.5 ml IM once; as a single dose Route: IM; Site: right deltoid; rg5 20:00 Follow up: Response: No adverse reaction rg5 Disposition Summary: 09/16/23 19:45 Discharge Ordered Notes: Location: Home ms3 Condition: Stable ms3 Diagnosis - Laceration without foreign body of left elbow ms3 Followup: ms3 - With: Private Physician - When: 2 - 3 days - Reason: Recheck today's complaints Discharge Instructions: - Discharge Summary Sheet ms3 - Laceration Care, Adult, [id number] ms3 Forms: - Medication Reconciliation Form ms3 - Antibiotic Education ms3 - Prescription Opioid Use ms3 - Patient Portal Instructions ms3 - Leadership Thank You Letter ms3 Signatures: Dionisio Pierre DO DO ms3 Brittney Greene, RN RN nj1 Bean Samson, RN RN rg5
--- NOTE | 2023-09-16 19:46 | ER ---
Nurse's Notes [facility] Name: Tanvir Degroot Age: 42 yrs Sex: Male : 1980 Arrival Date: 09/16/2023 Time: 18:35 Bed 10 Private MD: Diagnosis: Laceration without foreign body of left elbow Presentation: 09/15 19:09 Chief complaint: Patient states: Bumped elbow going [place] slide [place] this [facility] morning at round noon. Wondering if it needs stitches. Coronavirus screen: Vaccine status: Patient reports being unvaccinated. Ebola Screen: Patient denies travel to an Ebola-affected area in the 21 days before illness onset. Initial Sepsis Screen: Does the patient meet any 2 criteria? No. Patient's initial sepsis screen is negative. Does the patient have a suspected source of infection? No. Patient's initial sepsis screen is negative. Risk Assessment: Do you want to hurt yourself or someone else? Patient reports no desire to harm self or others. Onset of symptoms was September 16, 2023 at 12:00. 19:09 Method Of Arrival: Ambulatory [facility] 19:09 Acuity: NAHED 4 [facility] Triage Assessment: 19:30 General: Appears in no apparent distress. Behavior is calm, cooperative, appropriate rg5 for age. Pain: Denies pain. EENT: No deficits noted. Neuro: Level of Consciousness is awake, alert, obeys commands, Oriented to person, place, time. Cardiovascular: Denies chest pain, shortness of breath, Capillary refill < 3 seconds Patient's skin is warm and dry. Respiratory: Airway is patent Trachea midline. GI: Abdomen is round non-distended. : No signs and/or symptoms were reported regarding the genitourinary system. Derm: Skin is intact, Skin is dry, Skin is normal, Skin temperature is warm Wound noted left elbow Wound is lacerated wound. Musculoskeletal: Range of motion:. Historical: - Allergies: 19:12 No Known Allergies; nj1 - PMHx: 19:12 None; nj1 - PSHx: 19:12 None; nj1 - Immunization history:: Client reports having NOT received the Covid vaccine. Last tetanus immunization: unknown. - Infectious Disease History:: Denies. - Social history:: Smoking status: Patient denies any tobacco usage or history of. Screenin:30 [facility] ED Fall Risk Assessment (Adult) History of falling in the last 3 months, rg5 including since admission No falls in past 3 months (0 pts) Confusion or Disorientation No (0 pts) Intoxicated or Sedated No (0 pts) Impaired Gait No (0 pts) Mobility Assist Device Used No (0 pt) Altered Elimination No (0 pt) Score/Fall Risk Level 0 - 2 = Low Risk Oriented to surroundings, Maintained a safe environment, Hourly rounding (assess needs \T\ fall precautionary measures) done. 19:30 Abuse screen: Denies threats or abuse. Nutritional screening: No deficits noted. rg5 Tuberculosis screening: No symptoms or risk factors identified. Vital Signs: 19:09 BP 140 / 91; Pulse 71; Resp 18; Temp 98(O); Pulse Ox 98% on R/A; Weight 93.44 kg; nj1 Height 5 ft. 9 in. ; Pain 4/10; 19:30 BP 119 / 77; Pulse 77; Resp 17; Temp 98; Pain 0/10; rg5 19:09 Body Mass Index 30.42 (93.44 kg, 175.26 cm) nj1 19:09 Pain Scale: Adult nj1 19:30 Pain Scale: Adult rg5 ED Course: 18:40 Patient arrived in ED. mr 19:08 Dionisio Pierre DO is Attending Physician. ms3 19:12 Triage completed. nj1 19:12 Arm band placed on right wrist. nj1 19:30 Patient has correct armband on for positive identification. Bed in low position. Call rg5 light in reach. Provided Education on: wound care. 19:30 Assist provider with laceration repair Set up tray. Patient did not have IV access rg5 during this emergency room visit. 19:45 Dionisio Pierre DO is Referral Physician. ms3 19:45 Referral Physician role handed off by Dionisio Pierre DO ms3 19:51 Gertrudis Agarwal, LAUREN is Primary Nurse. ha1 Administered Medications: 19:45 Drug: Boostrix Tdap IM 0.5 ml IM once; as a single dose Route: IM; Site: right deltoid; rg5 20:00 Follow up: Response: No adverse reaction rg5 Medication: 20:05 VIS not applicable for this client. rg5 Outcome: 19:30 Discharged to home ambulatory, rg5 19:30 Condition: good 19:30 Discharge instructions given to patient, Instructed on discharge instructions, follow up and referral plans. Demonstrated understanding of instructions, 19:45 Discharge ordered by . ms3 20:05 Patient left the ED. rg5 Signatures: Alcira Rehman, Reg Reg Dionisio Londono, DO DO ms3 Gertrudis Agarwal, RN RN ha1 Brittney Greene RN RN nj1 Bean Samson RN RN rg5
[2023-09-16] MEDS ORDERED: TDAP (DIPHTH,PERTUSS(ACELL),TET VAC) 0.5 ML VIAL IMVAC ONE (19:52)
[2023-09-16 20:09] VITALS: TEMP 98; O2SAT 98
[2023-09-16 20:11] VITALS: BP 119/77
== END 2023-09-16 20:05 | disposition home or self-care (01) ==
LOC: ER 18:35
PROC: 0HQEXZZ Repair Left Lower Arm Skin, External Approach (ICD-10-PCS; principal; 2023-09-16)
DX: S51.012A Laceration without foreign body of left elbow, initial encounter (principal)
CPT/HCPCS: 96372; 99284